=== PATIENT | female | born 1990 | race Asian ===

== ENCOUNTER 2019-05-24 08:06 | Emergency (ER) | payer SELFPAY ==
[~2019-05-24] VITALS: Ht 170.2 cm; Wt 54.0 kg
[2019-05-24] MEDS ORDERED: SODIUM CHLORIDE 0.9% 1,000 ML IV ONE (08:35)
[2019-05-24] MEDS ORDERED: ACETAMINOPHEN 325MG TABLET PO STA (08:35)
[2019-05-24 09:12] LABS: BASOPHILS % 0.6 % (0.0-2.0); EOSINOPHILS % 1.4 % (0.0-5.0); HEMATOCRIT. 39.1 % (36.0-48.0); HEMOGLOBIN. 12.5 g/dL (12.0-16.0); LYMPHOCYTES % 29.9 % (20.0-50.0); MEAN CORPUSCULAR HEMOGLOBIN 21.1 pg (28.0-32.0); MEAN CORPUSCULAR VOLUME 65.7 fL (81.0-99.0); MEAN PLATELET VOLUME 8.3 fl (7.4-10.4); NEUTROPHILS % 59.1 % (40.0-76.0); PLATELET 287 x1000/uL (130-400); RED BLOOD CELL COUNT 5.94 mill/uL (4.2-5.4)
[2019-05-24 09:18] LABS: CLARITY URINE CLEAR (CLEAR); COLOR URINE YELLOW (YELLOW); KETONES URINE 3+ (NEGATIVE); LEUKOCYTE ESTERASE URINE TRACE (NEGATIVE); NITRITE URINE NEGATIVE (NEGATIVE); OCCULT BLOOD URINE NEGATIVE (NEGATIVE); PH URINE 5.5 (4.5-8.0); PROTEIN URINE NEGATIVE (NEGATIVE); SPECIFIC GRAVITY URINE 1.026 (1.005-1.030); UROBILINOGEN URINE 0.2 E.U./dL (0.2-1.0)
[2019-05-24 09:19] LABS: CHLORIDE 105 mEq/L (98-107)
[2019-05-24 09:28] LABS: T4 FREE 1.22 ng/dL (0.76-1.46)
[2019-05-24 09:52] LABS: PLATELET ESTIMATE NORMAL
[2019-05-24 11:47] VITALS: BP 105/78
== END 2019-05-24 11:54 | disposition home or self-care (01) ==
LOC: ER 08:06
DX: R56.9 Unspecified convulsions (principal); N39.0 Urinary tract infection, site not specified; E03.9 Hypothyroidism, unspecified; D56.9 Thalassemia, unspecified
CPT/HCPCS: 36415; 70450; 80053; 81003; 81025; 83605; 84439; 84443; 85025; 85379; 93005; 96360; 99284; J7030